=== PATIENT | female | born 1930 | race Two or more races ===

== ENCOUNTER 2017-10-06 08:26 | Inpatient (IN) | payer MEDICARE, BC ==
[~2017-10-06] VITALS: Ht 157.5 cm; Wt 59.4 kg
[2017-10-06] MEDS ORDERED: METO25TA3 PO (12:25)
[2017-10-06] MEDS ORDERED: GABA-534 PO (12:25)
[2017-10-06] MEDS ORDERED: ZOLP10TA2 PO (12:25)
[2017-10-06] MEDS ORDERED: MISO200T PO (12:25)
[2017-10-06] MEDS ORDERED: HYDR-548 PO (12:25)
[2017-10-06] MEDS ORDERED: MAGNESIUM HYDROXIDE 30 ML UDC PO PRN (12:30)
[2017-10-06] MEDS ORDERED: MAG HYDROX/AL HYDROX/SIMETH 30 ML UDC PO PRN (12:30)
[2017-10-06] MEDS ORDERED: hydrOXYzine PAMOATE 25 MG CAPSULE PO PRN (12:30)
--- NOTE | 2017-10-06 13:30 | NUR ---
GPS/RN-NOTES DR. RIVERA MADE AWARE OF PATIENT'S MEDICATION NEED TO RECONCILE.
[2017-10-06 15:22] VITALS: BP 155/86
--- NOTE | 2017-10-06 15:50 | NUR ---
GPS/RN-NOTES ADMITTED 87 Y.O FEMALE PATIENT FROM [facility]. PATIENT ON 5150 HOLD FOR DTS. PER HOLD PATIENT TOOK 6-7 PILLS OF AMBIEN AND PLAN TO OVERDOSE WITH PRESCRIPTION DRUGS.PATIENT IS UNDER DR. MASTERSON ( PSYCHIATRIST) AND DR. RIVERA( TOOL POLISHING MACHINE OPERATOR), BOTH MD AWARE OF PATIENT ADMISSION IN THE UNIT. UPON FACE TO FACE ASSESSMENT WITH THE PATIENT, SHE ADMITS THAT SHE IS DEPRESSED BUT DENIES SI/HI AT THIS TIME. PATIENT STATED" I DON'T HAVE ANY PLAN TO HARM MY SELF AGAIN". PATIENT'S RIGHT WAS DISCUSS WITH THE PATIENT AND PATIENTS RIGHT HANDBOOK WAS GIVEN TO THE PATIENT.PATIENT SON DAVID GRIFFITHS ([phone]) MADE AWARE OF PATIENT ADMISSION. CONTRABAND AND BODY ASSESSMENT WAS DONE. PATIENT WAS ORIENTED TO THE UNIT AND UNIT POLICIES.WILL CONT. MONITORING Q 15 MINS. FOR SAFETY AND BEHAVIOR.
[2017-10-06 16:00] VITALS: BP 180/87
--- NOTE | 2017-10-06 18:41 | NUR ---
GPS/RN-NOTES PATIENT C/O CONSTIPATION. OFFERED MOM AND AGREES MOM 30ML GIVEN PRN ORDER.WILL CONT. MONITORING. WILL ENDORSE TO INCOMING NURSE.
[2017-10-06] MEDS ORDERED: Z GUARD REMEDY 2 OZ OINT TP PRN (19:00)
[2017-10-06 20:00] VITALS: BP_SYST 101; BP_SYST 182; BP_DIAS 64; BP_DIAS 93
--- NOTE | 2017-10-06 20:00 | NUR ---
PATIENT NOTED TO HAVE LARGE SOFT STOOL, KEPT CLEAN, DRY AND COMFORTABLE, NOTIFIED DR. ARAIZA TO RECONCILE MEDICATION. WILL CONTINUE TO MONITOR Q15 MINS FOR SAFETY
[2017-10-06] MEDS ORDERED: GABAPENTIN 300 MG CAPSULE PO SCH (20:30)
[2017-10-06] MEDS: ACETAMINOPHEN 325 MG TABLET PO PRN (20:39)
[2017-10-06] MEDS ORDERED: GABAPENTIN 300 MG CAPSULE PO ONE (21:30)
--- NOTE | 2017-10-06 21:30 | NUR ---
GPS RN NOTE: GABAPENTIN 600MG PO GIVEN AT 2030 ORDERED
[2017-10-07 06:38] LABS: ALANINE AMINOTRANSFERASE 20 U/L (12-78); ALBUMIN 3.1 g/dL (3.4-5.0); ALKALINE PHOSPHATASE 123 U/L (46-116); ASPARTATE AMINOTRANSFERASE 24 U/L (15-37); BILIRUBIN,TOTAL 0.9 mg/dL (0.2-1.0); CALCIUM, SERUM 9.2 mg/dL (8.5-10.1); CARBON DIOXIDE 26 mmol/L (21-32); CHLORIDE 103 mmol/L (98-107); CREATININE 0.7 mg/dL (0.6-1.3); GLUCOSE 94 mg/dL (74-106); POTASSIUM 4.5 mmol/L (3.5-5.1); SODIUM SERUM 137 mmol/L (136-145); TOTAL PROTEIN, SERUM 7.2 g/dL (6.4-8.2); UREA NITROGEN, BLOOD 13 mg/dL (7-18)
[2017-10-07 06:40] LABS: CHOLESTEROL 222 mg/dL (<200); HDL CHOLESTEROL 70 mg/dL (40-60); LDL 140 mg/dL (0-99); TRIGLYCERIDES 50 mg/dL (30-150)
[2017-10-07] MEDS ORDERED: MISOPROSTOL 200 MCG TABLET PO SCH (08:00)
[2017-10-07] MEDS: MISOPROSTOL 100 MCG TABLET PO SCH ×2 (08:08→17:36)
[2017-10-07] MEDS: GABAPENTIN 300 MG CAPSULE PO SCH ×2 (09:01→16:38)
[2017-10-07] MEDS: METOPROLOL SUCCINATE 25 MG TAB.SR.24H PO SCH (09:02)
[2017-10-07] MEDS: DULOXETINE HCL 30 MG CAPSULE.DR PO SCH (11:00)
[2017-10-07 16:00] VITALS: BP 112/65
--- NOTE | 2017-10-07 19:30 | NUR ---
GPS RN NOTE, RECEIVED PATIENT AWAKE AND IN BED, NO S/S OR COMPLAINTS OF PAIN AT THIS TIME. PATIENT IS DISPLAYING NO S/S OF APPARENT DISTRESS AT THIS TIME. PATIENT BREATHING IS UNLABORED WITH EQUAL RISE AND FALL OF THE CHEST. PATIENT IS ALERT AND ORIENTED X2-3 ON ROOM AIR WITH A SPO2 OF 94%. PATIENT IS MED COMPLAINT, DISORGANIZED, ANXIOUS AT TIMES, PARANOID, AND NEEDS REORIENTATION. PATIENT DENIES SUICIDE IDEATIONS AND HOMICIDAL IDEATIONS AT THIS TIME. PATIENT ASSISTED WITH TURNING AND REPOSITIONING Q2HR AND PRN FOR COMFORT AND CIRCULATION. PATIENT HAS NO NEEDS AT THIS TIME. PATIENT EDUCATED ON THE USE OF THE CALL SUNG. PATIENT SIDE RAILS ARE UP X 2, BED IS LOCKED AND LOW, AND I WILL CONTINUE TO MONITOR THIS PATIENT Q 15 MIN WITH THE HELP OF STAFF.
[2017-10-07 20:06] VITALS: BP 134/90
[2017-10-07] MEDS: HYDROCODONE/APAP 10/325MG 1 EA TABLET PO PRN (22:25)
--- NOTE | 2017-10-07 22:25 | NUR ---
GPS RN NOTE, PATIENT HAS A COMPLAINT OF CHRONIC RIGHT HIP PAIN AT 7 OUT 10 ON THE PAIN SCALE AND IS REQUESTING NORCO AT THIS TIME. PATIENT VITAL ARE STABLE. GAVE NORCO 10-325 1 TAB PO Q6HR PRN ORDERED. WILL REASSESS PAIN AND I WILL CONTINUE TO MONITOR THIS PATIENT.
[2017-10-08] MEDS: ACETAMINOPHEN 325 MG TABLET PO PRN (05:16)
--- NOTE | 2017-10-08 05:16 | NUR ---
GPS RN NOTE, PATIENT HAS A COMPLAINT OF HEAD ACHE PAIN AT 2 OUT 10 ON THE PAIN SCALE AND IS REQUESTING TYLENOL AT THIS TIME. PATIENT VITAL ARE STABLE. GAVE TYLENOL 650 MG PO Q6HR PRN ORDERED. WILL REASSESS PAIN AND I WILL CONTINUE TO MONITOR THIS PATIENT.
[2017-10-08 08:00] VITALS: BP 155/78
[2017-10-08] MEDS: METOPROLOL SUCCINATE 25 MG TAB.SR.24H PO SCH (08:40)
[2017-10-08] MEDS: DULOXETINE HCL 30 MG CAPSULE.DR PO SCH (08:40)
[2017-10-08] MEDS: GABAPENTIN 300 MG CAPSULE PO SCH ×2 (08:41→17:06)
[2017-10-08] MEDS: MISOPROSTOL 100 MCG TABLET PO SCH ×2 (08:41→17:06)
[2017-10-08 16:00] VITALS: BP 146/86
--- NOTE | 2017-10-08 16:39 | NUR ---
Discharge Planning: SW called patient's son, Ty [phone] and had a lengthy and detailed conversation with him regarding patient's discharge plans. Ty stated that he is the only family that patient has and that he feels overwhelmed. Ty stated that he is either thinking of a SNF placement or moving in with his mom to look after her. SW explained different options for placement and the process that happens. Ty was thankful. Ty stated that he is patient's DPOA for health and finances. SW asked him to fax or bring in the paperwork. Ty stated that he will do so. JOSSELIN provided Ty with her direct contact information.
--- NOTE | 2017-10-08 19:30 | NUR ---
GPS RN NOTE, RECEIVED PATIENT AWAKE AND IN BED, NO S/S OR COMPLAINTS OF PAIN AT THIS TIME. PATIENT IS DISPLAYING NO S/S OF APPARENT DISTRESS AT THIS TIME. PATIENT BREATHING IS UNLABORED WITH EQUAL RISE AND FALL OF THE CHEST. PATIENT IS ALERT AND ORIENTED X2-3 ON ROOM AIR WITH A SPO2 OF 96%. PATIENT IS MED COMPLAINT, DISORGANIZED, ANXIOUS AT TIMES, PARANOID, AND NEEDS REORIENTATION. PATIENT DENIES SUICIDE IDEATIONS AND HOMICIDAL IDEATIONS AT THIS TIME. PATIENT ASSISTED WITH TURNING AND REPOSITIONING Q2HR AND PRN FOR COMFORT AND CIRCULATION. PATIENT HAS NO NEEDS AT THIS TIME. PATIENT EDUCATED ON THE USE OF THE CALL SUNG. PATIENT SIDE RAILS ARE UP X 2, BED IS LOCKED AND LOW, AND I WILL CONTINUE TO MONITOR THIS PATIENT Q 15 MIN WITH THE HELP OF STAFF.
[2017-10-08 20:07] VITALS: BP 137/85
[2017-10-09 06:47] LABS: BASOPHILS % (AUTO) 0.2 % (0.0-2.0); EOSINOPHILS # (AUTO) 0.1 /CMM (0.0-0.7); EOSINOPHILS % (AUTO) 0.5 % (0.0-6.0); HEMATOCRIT 38 % (33-45); HEMOGLOBIN 13.2 g/dL (11.5-14.8); LYMPHOCYTES # (AUTO) 1.6 /CMM (0.8-4.8); LYMPHOCYTES % (AUTO) 15.1 % (20.0-44.0); MEAN CORPUSCULAR HEMOGLOBIN 31 PG (26.0-33.0); MEAN CORPUSCULAR HGB CONC 35 g/dl (31.0-36.0); MEAN CORPUSCULAR VOLUME 88 fL (82-100); MONOCYTES # (AUTO) 0.6 /CMM (0.1-1.30); NEUTROPHILS # (AUTO) 8.2 /CMM (1.8-8.9); NEUTROPHILS % (AUTO) 78.2 % (43.0-81.0); PLATELET COUNT (AUTO) 420 /CMM (150-450); RDW COEFFICIENT OF VARIATION 12.2 (11.5-15.0); RED BLOOD CELL COUNT(AUTO) 4.34 MIL/uL (4.0-5.2); WHITE BLOOD COUNT (AUTO) 10.5 K/uL (4.3-11.0)
[2017-10-09 08:00] VITALS: BP 115/63
[2017-10-09] MEDS: DULOXETINE HCL 30 MG CAPSULE.DR PO SCH (08:37)
[2017-10-09] MEDS: GABAPENTIN 300 MG CAPSULE PO SCH ×2 (08:37→16:30)
[2017-10-09] MEDS: MISOPROSTOL 100 MCG TABLET PO SCH ×2 (08:38→18:29)
[2017-10-09] MEDS: METOPROLOL SUCCINATE 25 MG TAB.SR.24H PO SCH (08:38)
--- NOTE | 2017-10-09 16:13 | NUR ---
Initial Discharge Note: Patient resides at [address] [place], [place] [address]. Patient lives there alone. JOSSELIN called and spoke with patient's son, Ty Brandt [phone]. Ty informed JOSSELIN that he would like to move in with his mother and get some home-health services. He stated that he would consider a SNF but was prefer to have his mom home. SW to follow up with MD and facilitate safe and proper discharge.
[2017-10-09 16:18] VITALS: BP 113/64
[2017-10-09 20:00] VITALS: BP 172/76
[2017-10-09 21:00] VITALS: BP 147/68
[2017-10-10 08:03] VITALS: BP 142/81
[2017-10-10] MEDS: MISOPROSTOL 100 MCG TABLET PO SCH ×2 (09:08→17:01)
[2017-10-10] MEDS: METOPROLOL SUCCINATE 25 MG TAB.SR.24H PO SCH (09:08)
[2017-10-10] MEDS: DULOXETINE HCL 30 MG CAPSULE.DR PO SCH (09:08)
[2017-10-10] MEDS: GABAPENTIN 300 MG CAPSULE PO SCH ×2 (09:08→17:00)
[2017-10-10 16:10] VITALS: BP 100/52
[2017-10-10 20:25] VITALS: BP 110/58
[2017-10-10] MEDS: HYDROCODONE/APAP 10/325MG 1 EA TABLET PO PRN (21:59)
--- NOTE | 2017-10-11 00:10 | NUR ---
PATIENT SLEEPING AT THIS TIME.
[2017-10-11 08:00] VITALS: BP 115/68
[2017-10-11] MEDS: MISOPROSTOL 100 MCG TABLET PO SCH ×2 (08:24→17:19)
[2017-10-11] MEDS: GABAPENTIN 300 MG CAPSULE PO SCH ×2 (08:39→17:18)
[2017-10-11] MEDS: DULOXETINE HCL 30 MG CAPSULE.DR PO SCH (08:39)
[2017-10-11] MEDS: METOPROLOL SUCCINATE 25 MG TAB.SR.24H PO SCH (08:41)
[2017-10-11 16:04] VITALS: BP_SYST 109; BP_SYST 110; BP_DIAS 60; BP_DIAS 76
[2017-10-11 20:00] VITALS: BP 119/60
[2017-10-12 08:00] VITALS: BP 113/65
[2017-10-12] MEDS: DULOXETINE HCL 30 MG CAPSULE.DR PO SCH (08:40)
[2017-10-12] MEDS: GABAPENTIN 300 MG CAPSULE PO SCH ×2 (08:40→16:54)
[2017-10-12] MEDS: MISOPROSTOL 100 MCG TABLET PO SCH ×2 (08:40→17:02)
[2017-10-12] MEDS: METOPROLOL SUCCINATE 25 MG TAB.SR.24H PO SCH (08:40)
--- NOTE | 2017-10-12 09:15 | NUR ---
Discharge Planning: JOSSELIN faxed inquiries to the following facilities: [facility]: [phone] fax # [phone] [facility] Yoanna Toano Addendum: 10/12/17 at 7622 by INOCENCIO SCHWAB [address] [place] [address]
--- NOTE | 2017-10-12 09:15 | NUR ---
Discharge Planning: JOSSELIN has been in contact with patient's son, Ty [phone]. Ty still seems to be conflicted as to the discharge plan and seems unsure if he wants his mother home or in a SNF. Ty is particular about which SNF he would like, should he decide on that route. JOSSELIN will follow up with Ty and discuss the discharge plan in detail with him.
--- NOTE | 2017-10-12 12:51 | NUR ---
Discharge Planning: JOSSELIN spoke with Damian from [facility] who stated that, as of right now, the facility does not have any beds available. Damian asked JOSSELIN to call him on Sunday. JOSSELIN will follow up. JOSSELIN also spoke with patient's son, Ty [phone] and updated him. Ty stated that if patient does not get into [facility], then he would like to take her home. Ty stated that he has already moved in to her place and that he works from home, meaning he will be able to care for her 26/03.
[2017-10-12 16:11] VITALS: BP 104/57
[2017-10-12 20:00] VITALS: BP 105/72
[2017-10-13 08:00] VITALS: BP 135/67
[2017-10-13] MEDS: MISOPROSTOL 100 MCG TABLET PO SCH ×2 (08:56→17:14)
[2017-10-13] MEDS: DULOXETINE HCL 30 MG CAPSULE.DR PO SCH (08:56)
[2017-10-13] MEDS: METOPROLOL SUCCINATE 25 MG TAB.SR.24H PO SCH (08:57)
[2017-10-13] MEDS: GABAPENTIN 300 MG CAPSULE PO SCH ×2 (08:57→17:14)
[2017-10-13] MEDS: HYDROCODONE/APAP 10/325MG 1 EA TABLET PO PRN (15:38)
--- NOTE | 2017-10-13 15:38 | NUR ---
GPS/RN-NOTES PATIENT C/O 05/13 GENERALIZED BODY PAIN. NORCO 10/325MG P.O GIVEN ORDER. WILL CONT. MONITORING FOR SAFETY.
[2017-10-13 16:00] VITALS: BP 120/62
[2017-10-13 20:00] VITALS: BP 124/64
[2017-10-14] MEDS: DULOXETINE HCL 30 MG CAPSULE.DR PO SCH (08:09)
[2017-10-14] MEDS: GABAPENTIN 300 MG CAPSULE PO SCH ×2 (08:09→16:18)
[2017-10-14 08:10] VITALS: BP 140/67
[2017-10-14] MEDS: MISOPROSTOL 100 MCG TABLET PO SCH ×2 (08:10→17:13)
[2017-10-14] MEDS: METOPROLOL SUCCINATE 25 MG TAB.SR.24H PO SCH (08:11)
[2017-10-14 16:46] VITALS: BP 122/65
[2017-10-14 20:01] VITALS: BP 123/74
[2017-10-15 08:00] VITALS: BP 115/56
[2017-10-15] MEDS: METOPROLOL SUCCINATE 25 MG TAB.SR.24H PO SCH (08:43)
[2017-10-15] MEDS: DULOXETINE HCL 30 MG CAPSULE.DR PO SCH (08:43)
[2017-10-15] MEDS: GABAPENTIN 300 MG CAPSULE PO SCH ×2 (08:43→16:53)
[2017-10-15] MEDS: MISOPROSTOL 100 MCG TABLET PO SCH ×2 (08:43→17:34)
--- NOTE | 2017-10-15 09:09 | NUR ---
Discharge Planning: JOSSELIN spoke with patient's son, Ty [phone]. Ty stated that he would like to take his mother home. Ty stated that he is moved in to the house and that he also arranged for additional help with a caregiver. Ty stated that he would like patient's psychiatrist to call him. JOSSELIN informed Dr. Narvaez of this.
[2017-10-15 16:00] VITALS: BP 127/98
--- NOTE | 2017-10-15 19:30 | NUR ---
GPS RN NOTE, RECEIVED PATIENT AWAKE AND IN BED, PATIENT HAS A COMPLAINT OF RIGHT HIP PAIN AT 6 OUT 10 ON THE PAIN SCALE. PATIENT IS TAKING ORAL PAIN MEDICATION FOR THIS PAIN. PATIENT IS DISPLAYING NO S/S OF APPARENT DISTRESS AT THIS TIME. PATIENT BREATHING IS UNLABORED WITH EQUAL RISE AND FALL OF THE CHEST. PATIENT IS ALERT AND ORIENTED X1 ON ROOM AIR WITH A SPO2 OF 97%. PATIENT IS MED COMPLAINT, DISORGANIZED, ANXIOUS, IRRITABLE, CONFUSED AT TIMES, AND NEEDS REORIENTATION. PATIENT DENIES SUICIDE IDEATIONS AND HOMICIDAL IDEATIONS AT THIS TIME. PATIENT ASSISTED WITH TURNING AND REPOSITIONING Q2HR AND PRN FOR COMFORT AND CIRCULATION. PATIENT HAS NO NEEDS AT THIS TIME. PATIENT EDUCATED ON THE USE OF THE CALL SUNG. PATIENT SIDE RAILS ARE UP X 2, BED IS LOCKED AND LOW, AND I WILL CONTINUE TO MONITOR THIS PATIENT Q 15 MIN WITH THE HELP OF STAFF.
[2017-10-15] MEDS: HYDROCODONE/APAP 10/325MG 1 EA TABLET PO PRN (19:44)
[2017-10-15 19:49] VITALS: BP 138/65
[2017-10-16 08:00] VITALS: BP 125/62
[2017-10-16] MEDS: GABAPENTIN 300 MG CAPSULE PO SCH (08:36)
[2017-10-16 08:37] VITALS: BP 125/62
[2017-10-16] MEDS: DULOXETINE HCL 30 MG CAPSULE.DR PO SCH (08:37)
[2017-10-16] MEDS: MISOPROSTOL 100 MCG TABLET PO SCH (08:37)
[2017-10-16] MEDS: METOPROLOL SUCCINATE 25 MG TAB.SR.24H PO SCH (08:37)
--- NOTE | 2017-10-16 10:10 | NUR ---
Discharge Note: Patient will be discharged home to [address] [place], [place] [address]. Patient lives there with her son. Patient will be picked up by her son, Ty Brandt [phone] in his private vehicle. Per patients son, he works from home and will be able to look after the patient. He also has arranged for a caregiver. Both, patient and son, are in agreement with discharge plan. Patient expressed happiness at being able to go home with son. Upon discharge, patient is in no apparent distress and is calm/cooperative. Patient denies suicidal and homicidal ideation. Patient will follow up with her screen maker, Dr. Graves [address], [place] [phone], on October 29 at 11:40am. Patient was also referred to see a psychiatrist at the [facility], [address] [place] [id number] / [phone].
[2017-10-16] MEDS ORDERED: GABA-534 PO (11:00)
[2017-10-16] MEDS ORDERED: METO25TA3 PO (11:00)
[2017-10-16] MEDS ORDERED: ACET-868 PO (11:00)
--- NOTE | 2017-10-16 11:30 | NUR ---
GPS/RN PATIENT CLEARED FOR DISCHARGE HOME BY DR MASTERSON AND DR UPTON. MEDICATIONS RECONCILED BY BOTH DR'S, AFTERCARE PLAN, EXIT CARE PACKET AND MEDICATIONS EXPLAINED TO PATIENT AND SON, VERBALIZED UNDERSTANDING. PRESCRIPTIONS INCLUDED IN PACKET, PATIENTS SON TUNDE STATED THAT SHE DID NOT REQUIRE ANY MEDICAL PRESCRIPTIONS AND THAT HER PRIMARY CARE DR TAKES CARE OF THAT. ALICIA GRIFFITHS IS AWARE OF THE NEED TO TAKE PSYCHIATRIC PRESCRIPTIONS TO BE FILLED SOON POSSIBLE TO THEIR PREFERRED PHARMACY, VERBALIZED UNDERSTANDING. PATIENT REFUSED D/C PHOTS, EXPLAINED RISKS AND BENEFITS. PATIENT DENIES SI/HI/AH UPON DISCHARGE, PSYCHIATRIC TREATMENT PLANS MET, PATIENT IS CALM, COOPERATIVE WITH NO AGITATION OR DISTRESS NOTED. LEFT UNIT WITH TELEX OPERATOR AND SON AT SIDE.
== END 2017-10-16 11:30 | disposition home or self-care (01) | DRG 885 ==
LOC: GPS 11:49
PROVIDERS: ADMIT Psychiatry & Neurology Psychiatry; ATTEND Psychiatry & Neurology Psychiatry
DX: F33.2 Major depressive disorder, recurrent severe without psychotic features (principal); R45.851 Suicidal ideations; M19.90 Unspecified osteoarthritis, unspecified site; I10 Essential (primary) hypertension; Z86.711 Personal history of pulmonary embolism; G89.29 Other chronic pain; G47.00 Insomnia, unspecified; T42.6X2D Poisoning by other antiepileptic and sedative-hypnotic drugs, intentional self-harm, subsequent encounter
CPT/HCPCS: 36415; 80053-TC; 80061-TC; 85025-TC; 87081-TC; A6402